=== PATIENT | female | born 1985 | race Two or more races ===

== ENCOUNTER 2023-05-22 13:30 | Inpatient (IN) | payer OTHER ==
[~2023-05-22] VITALS: Ht 152.4 cm; Wt 90.7 kg
[2023-05-22] MEDS ORDERED: IRON236 MG PO (17:07)
[2023-05-22] MEDS ORDERED: PEPCID AC20 MG PO (17:07)
[2023-05-22] MEDS ORDERED: PRENATAL TABLE1 EAC1 PO (17:07)
[2023-05-22 17:08] LABS: HEMOGLOBIN 11.7 g/dL (12.0-15.00); MEAN CELL VOLUME 77.5 fL (80.00-100.00); MEAN CORPUSCULAR HGB CONC 33.5 g/dl (32.0-36.0); PLATELET COUNT 186 K/uL (150-450); RED BLOOD COUNT 4.52 M/uL (4.00-6.00); RED CELL DISTRIBUTION WIDTH 20.1 % (11.5-14.5); URINE APPEARANCE Clear; URINE BILIRRUBIN Negative (NEGATIVE); URINE BLOOD Small; URINE COLOR Yellow; URINE GLUCOSE Negative (NEGATIVE); URINE LEUKOCYTE Small; URINE NITRATE Negative; URINE PROTEIN 30 (NEGATIVE); URINE UROBILINOGEN 0.2 E.U./dl
[2023-05-22 17:11] LABS: URINE BACTERIA 531.6 uL (0.0-1933); URINE EPITHELIAL CELLS 54.2 uL (0.0-38.8); URINE RBC 37.2 uL (0.0-20.8); URINE WBC 34.1 uL (0.0-23.2)
[2023-05-22] MEDS ORDERED: RINGERS SOLUTION,LACTATED 1,000 ML IV SCH (17:15)
[2023-05-22] MEDS ORDERED: VANCOMYCIN HCL 1,000 MG VIAL IV ONE (17:15)
[2023-05-22 17:20] LABS: URINE SPERM A
[2023-05-22 17:27] LABS: PARTIAL THROMBOPLASTIN TIME 26.3 SECONDS (22.0-34.0); PROTHROMBIN TIME 10.5 SECONDS (9.0-11.5)
[2023-05-22 17:32] LABS: ALBUMIN 2.7 gm/dL (3.4-5.0); BILIRUBIN TOTAL 0.33 mg/dL (0.3-1.2); CALCIUM 8.9 mg/dL (8.5-10.1); CREATININE SERUM 0.74 mg/dL (0.55-1.02); GFR 87.83; GLOBULINA 3.9 G/DL (2.4-3.5); POTASSIUM 4.1 mEq/L (3.5-5.1); TOTAL PROTEIN 6.6 gm/dL (6.4-8.2)
[2023-05-22] MEDS ORDERED: MORPHINE SULFATE 4 MG/ML CARTRIDGE IV PRN (22:15)
[2023-05-23] MEDS ORDERED: VANCOMYCIN HCL 1,000 MG VIAL IV ONE (06:45)
[2023-05-23] MEDS ORDERED: VANCOMYCIN HCL 1,000 MG VIAL ONE (07:18)
[2023-05-23] MEDS ORDERED: FAMOTIDINE/PF 20 MG/2 ML VIAL ONE (07:24)
[2023-05-23] MEDS ORDERED: FAMOTIDINE/PF 20 MG/2 ML VIAL IV PUSH ONE (07:45)
[2023-05-23] MEDS ORDERED: OXYTOCIN 500 ML IV ONE (08:00)
[2023-05-23] MEDS ORDERED: ERYTHROMYCIN BASE 1 GM TUBE OP ONE (08:34)
[2023-05-23] MEDS ORDERED: OXYTOCIN 20 UNITS/1000ML RL PIGGYBAG IV ONE (08:34)
[2023-05-23] MEDS ORDERED: CHLORHEXIDINE GLUCONATE 120 ML BOTTLE TOP ONE (08:34)
[2023-05-23] MEDS ORDERED: ONDANSETRON HCL 2 MG/ML VIAL IV ONE (09:45)
[2023-05-23] MEDS ORDERED: OxyCODONE HCL/APAP UD (PERCOCET) PO PRN (12:45)
[2023-05-23] MEDS ORDERED: OXYTOCIN 1,000 ML IV SCH (12:45)
[2023-05-23] MEDS ORDERED: LIDOCAINE HCL 1% 20ML VIAL IJ ONE (13:15)
== END 2023-05-25 13:41 | disposition home or self-care (01) | DRG 807 ==
LOC: LDR 13:30 → OB/GYN 05-23 17:14
PROVIDERS: ADMIT Obstetrics & Gynecology Gynecology; ATTEND Obstetrics & Gynecology Gynecology
PROC: 4A1HXCZ Monitoring of Products of Conception, Cardiac Rate, External Approach (ICD-10-PCS; 2023-05-22)
PROC: 10E0XZZ Delivery of Products of Conception, External Approach (ICD-10-PCS; principal; 2023-05-23)
PROC: 0KQM0ZZ Repair Perineum Muscle, Open Approach (ICD-10-PCS; 2023-05-23)
PROC: 0UQG7ZZ Repair Vagina, Via Natural or Artificial Opening (ICD-10-PCS; 2023-05-23)
DX: O70.1 Second degree perineal laceration during delivery (principal); O13.4 Gestational [pregnancy-induced] hypertension without significant proteinuria, complicating childbirth; O99.824 Streptococcus B carrier state complicating childbirth; Z37.0 Single live birth; Z3A.37 37 weeks gestation of pregnancy; Z20.822 Contact with and (suspected) exposure to COVID-19